=== PATIENT | female | born 1985 | race American Indian/Alaskan Native ===

== ENCOUNTER 2019-11-07 15:46 | Outpatient (CLI) | payer MEDICAID ==
[2019-11-07] MEDS ORDERED: LACTATED RINGERS 500 ML IV ONE (15:59)
[2019-11-07 16:19] VITALS: BP 123/75
[2019-11-07 16:38] LABS: Bacteria,Urine 1+ /HPF (Negative); Bilirubin,Urine NEG (Negative); Blood,Urine NEG (Negative); Color,Urine Yellow (Yellow); Protein,Urine <15 mg/dL mg/dL (Negative); Urobilinogen,Urine < 2.0 mg/dL (<2.0)
== END 2019-11-07 18:25 | disposition home or self-care (01) ==
LOC: TRG 15:46
PROVIDERS: ATTEND Obstetrics & Gynecology
DX: O26.892 Other specified pregnancy related conditions, second trimester (principal); R10.30 Lower abdominal pain, unspecified; O47.02 False labor before 37 completed weeks of gestation, second trimester; Z3A.20 20 weeks gestation of pregnancy; Z21 Asymptomatic human immunodeficiency virus [HIV] infection status
CPT/HCPCS: 59025; 81001; J7120; 96360

== ENCOUNTER 2019-11-27 12:19 | Observation (INO) | payer OTHER, MEDICAID ==
[2019-11-27] MEDS ORDERED: ACETAMINOPHEN 325 MG TAB PO PRN ×2 (12:49→14:35)
[2019-11-27] MEDS: LACTATED RINGERS 1,000 ML IV SCH ×2 (13:47→21:31)
[2019-11-27 13:58] LABS: Basophils % (Auto) 0.5 % (0.0-1.8); Hematocrit 29.6 % (30.3-42.9); Hemoglobin 10.5 gm/dl (10.1-14.3); Lymphocytes # (Auto) 0.5 K/mm3 (1.2-5.4); Lymphocytes % (Auto) 5.8 % (13.4-35.0); Mean Corpuscular HGB Conc 36 % (30-34); Mean Corpuscular Volume 87 fl (79-97); Monocytes # (Auto) 0.7 K/mm3 (0.0-0.8); Monocytes % (Auto) 8.2 % (0.0-7.3); Platelet Count 243 K/mm3 (140-440); Red Blood Count 3.39 M/mm3 (3.65-5.03); Red Cell Distribution Width 12.9 % (13.2-15.2)
[2019-11-27 14:24] LABS: Alanine Aminotransferase 29 units/L (7-56); Albumin 3.5 g/dL (3.9-5); BUN/Creatinine Ratio 8; Blood Urea Nitrogen 5 mg/dL (7-17); Calcium 8.8 mg/dL (8.4-10.2); Hemolysis Index 1
[2019-11-27] MEDS ORDERED: DOCUSATE SODIUM 100 MG CAP PO PRN (14:35)
[2019-11-27] MEDS ORDERED: ONDANSETRON 4 MG/2 ML INJ IV PRN (14:35)
[2019-11-27] MEDS ORDERED: guaiFENesin DM 200/20 MG ORAL LIQD 10 ML PO PRN (14:35)
[2019-11-27 14:52] LABS: Bilirubin,Urine NEG (Negative); Blood,Urine NEG (Negative); Color,Urine Yellow (Yellow); Protein,Urine <15 mg/dL mg/dL (Negative)
[2019-11-27] MEDS ORDERED: LACTATED RINGERS 1,000 ML IV SCH (15:00)
--- NOTE | 2019-11-27 15:30 | History and Physical Report ---
History of Present Illness Date of examination: 11/27/19 Date of admission: 11/27/19 15:05 Chief complaint: cough, fever, body aches History of present illness: Pt presents with c/o cough, body aches, and fever of 101 at home for the last 3 days. She has taken tylenol on yesterday but none today. FOB noted to have sick contacts at work with confirmed flu in co-workers and has had same sx but has not had follow with provider or treatment. He states she has no sx at his time. Pt is also HIV (+). This was not discussed while s/o was in the room as provider was not clear if he is aware of her treatments. According to last notes, pt has had follow up at [facility] with and her CD4 was 351 and HIV was 36 as per notes from August 2019. Pt admitted with + influenza B virus swab. EDC Confirmation: 03/21/2020 Gestational Age: 6 2/7 weeks Past History : 3 Term Births: 1 Premature Births: 0 Living Children: 1 Para: 1 Mult. Births: 0 Prev : 0 Aborta: 1 Elect. Ab: 0 Spont. Ab: 1 Ectopics: 0 # 1 Delivery date: 2012 Weeks Gestation: 1st trimester Delivery type: SAB # 2 Delivery date: 2013 Weeks Gestation: 40 labor: no Delivery type: Delivery location: [facility] Sex: Female weight: 6#12 Comments: HIV infection dx during PNC Past Medical History: HIV - managaed by Dr. 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 of genital herpes: no Varicella/Chicken Pox Status: Previous Disease Genetic History Congenital Heart Defect: Mom: no Dad: no Sarah Disease: Mom: no Dad: no Thalassemia Mom: no Dad: no Neural Tube Defect Mom: no Dad: no Down's Syndrome Mom: no Dad: no Rachid-Sachs Mom: no Dad: no Sickle Cell Disease/Trait Mom: no Dad: no Hemophilia Mom: no Dad: no Muscular Dystrophy Mom: no Dad: no Cystic Fibrosis Mom: no Dad: no [place] Chorea Mom: no Dad: no Mental Retardation Mom: no Dad: no Fragile X Mom: no Dad: no Other Genetic/Chromosomal Disorder Mom: no Dad: no Child w/other defect Mom: no Dad: no Enviromental Exposures Xray Exposure: no Medication, drug, or alcohol use since LMP: no Chemical/Other Exposure: no Exposure to Cat Liter: no Hx of Parvovirus (Fifth Disease): no Occupational Exposure to Children: none Current Allergies (reviewed today): No known allergies Past History Past Medical History: other (HIV (+) well controlled follwed by Dr. 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) Family/Genetic History: other (see hpi) Social history: other (see hpi) - Obstetrical History Expected Date of Delivery: 03/21/20 Actual Gestation: 23 Week(s) 4 Day(s) : 3 Para: 1 Spontaneous Abortions: 1 Number of Living Children: 1 Medications and Allergies Allergies Allergy/AdvReac Type Severity Reaction Status Date / Time No Known Allergies Allergy Verified 11/07/19 15:58 Active Meds: Active Medications Acetaminophen (Tylenol) 650 mg PO Q4H PRN PRN Reason: PAIN,FE,DAVIS Last Admin: 11/27/19 13:34 Dose: 650 mg Documented by: Acetaminophen (Tylenol) 650 mg PO Q4H PRN PRN Reason: Pain MILD(1-3)/Fever >100.5/DAVIS Docusate Sodium (Colace) 100 mg PO Q12H PRN PRN Reason: Constipation Guaifenesin (Guaifenesin Dm Syrup) 10 ml PO Q6H PRN PRN Reason: Cough Lactated Ringer's (Lactated Ringers) 1,000 mls @ 125 mls/hr IV DIRECT CELESTE Last Admin: 11/27/19 13:47 Dose: 125 mls/hr Documented by: Lactated Ringer's (Lactated Ringers) 1,000 mls @ 125 mls/hr IV DIRECT [facility]LE[facility] Multivitamins/Iron/Calcium ( Vitamin) 1 each PO QDAY [facility]LE[facility] Ondansetron HCl (Zofran) 4 mg IV Q6H PRN PRN Reason: Nausea And Vomiting Review of Systems All systems: negative - Vital Signs Vital signs: Vital Signs Pulse BP 114 H 123/72 11/27/19 13:16 11/27/19 13:16 Temp Pulse Resp BP Pulse Ox 100.3 F H 103 H 24 129/71 95 11/27/19 13:19 11/27/19 15:08 11/27/19 13:34 11/27/19 15:08 11/27/19 14:41 - Physical Exam Breasts: Positive: deferred Cardiovascular: Normal S1, Normal S2 Lungs: Positive: Clear to auscultation, Normal air movement Abdomen: Positive: normal appearance, soft. Negative: distention, tenderness, guarding Genitourinary (Female): Positive: other (deferred) - Obstetrical FHR: category 2 (tachycardia resolving with IV hydration) Results Result Diagrams: 11/27/19 13:25 11/27/19 13:25 Abnormal lab results 11/27/19 11/27/19 11/27/19 Range/Units 12:53 13:25 13:25 RBC 3.39 L (3.65-5.03) M/mm3 Hct 29.6 L (30.3-42.9) % MCHC 36 H (30-34) % RDW 12.9 L (13.2-15.2) % Lymph % (Auto) 5.8 L (13.4-35.0) % [place] % (Auto) 8.2 H (0.0-7.3) % Lymph # 0.5 L (1.2-5.4) K/mm3 Seg Neutrophils % 85.5 H (40.0-70.0) % Sodium 133 L (137-145) mmol/L Carbon Dioxide 19 L (22-30) mmol/L BUN 5 L (7-17) mg/dL Creatinine 0.6 L (0.7-1.2) mg/dL Albumin 3.5 L (3.9-5) g/dL Influenza B (Rapid) Positive A (Negative) All other labs normal. Assessment and Plan - Patient Problems (1) 23 weeks gestation of Current Visit: Yes Status: Acute (2) Influenza B Current Visit: Yes Status: Acute Plan to address problem: -chest x ray to be sure no pneumonia is present given pt does have hiv also. No productive cough but persistent as per pt -start Tamiflu -ID consulted and above recommendation was given -closely monitor (3) HIV positive, asymptomatic Current Visit: Yes Status: Acute Plan to address problem: -cont home meds at this time -ID consulted (4) Fever Current Visit: Yes Status: Acute Qualifiers: Fever type: due to other condition Qualified Code(s): R50.81 - Fever presenting with conditions classified elsewhere Plan to address problem: -low grade at this time -tylenol around the clock -blood and urine cultures -cxr pending
[2019-11-27] MEDS: OSELTAMIVIR 75 MG CAP PO SCH ×2 (16:05→21:32)
--- NOTE | 2019-11-27 16:57 | XRay Report ---
CHEST 1 VIEW 4:20 PM INDICATION / CLINICAL INFORMATION: Fever. Influenza B. 23 weeks . COMPARISON: None available. FINDINGS: SUPPORT DEVICES: The patient's brassiere was left in place. The abdomen was shielded. HEART / MEDIASTINUM: The heart size and pulmonary vasculature are normal. LUNGS / PLEURA: No significant pulmonary or pleural abnormality. No pneumothorax. ADDITIONAL FINDINGS: No significant additional findings. IMPRESSION: No acute findings. There is no evidence of pneumonia. Signer Name: Pierre Wilhelm MD Signed: 11/27/2019 4:53 PM Workstation Name: [id number]
[2019-11-27] MEDS ORDERED: LACTATED RINGERS 1,000 ML IV ONE (19:12)
[2019-11-27] MEDS ORDERED: ACETAMINOPHEN 500 MG TAB PO PRN (21:05)
[2019-11-28] MEDS: LACTATED RINGERS 1,000 ML IV SCH (03:02)
--- NOTE | 2019-11-28 07:50 | Progress Note ---
<MARGOT DIALLO - Last Filed: 11/28/19 07:51> Assessment and Plan Pt resting No c/o voiced. Desires to go home when possible. Reports good FM. Denies LOF,VB, no ctx. Today will be day 2 of Tamiflu. Waiting for ID to see pt. Dr Obregon aware of patient status. - Patient Problems (1) HIV positive, asymptomatic Onset Date: ~11/28/19 Current Visit: Yes Status: Acute (2) Influenza B Onset Date: ~11/28/19 Current Visit: Yes Status: Acute Plan to address problem: plan: to be seen by ID; complete Tamiflu Encouraged hydration Subjective - Subjective Date of service: 11/28/19 (pt anxious to go home) Principal diagnosis: IUP 23w5d with Flu Type B; HIV+ Patient reports: movement normal Objective - Vital Signs Vital Signs: Vital Signs - 12hr 11/27/19 11/27/19 11/27/19 20:37 20:38 20:39 Temperature 100.4 F H Pulse Rate 120 H 120 H 121 H Respiratory 20 Rate Blood Pressure 128/70 Blood Pressure 128/70 [Right] O2 Sat by Pulse 100 100 Oximetry 11/27/19 11/27/19 11/27/19 20:44 20:49 20:54 Temperature Pulse Rate 119 H 127 H 131 H Respiratory Rate Blood Pressure Blood Pressure [Right] O2 Sat by Pulse 100 100 100 Oximetry 11/27/19 11/27/19 11/27/19 20:59 21:04 21:09 Temperature Pulse Rate 127 H 123 H 126 H Respiratory Rate Blood Pressure Blood Pressure [Right] O2 Sat by Pulse 100 100 100 Oximetry 11/27/19 11/27/19 11/27/19 21:14 21:16 21:19 Temperature Pulse Rate 129 H 121 H 121 H Respiratory Rate Blood Pressure Blood Pressure [Right] O2 Sat by Pulse 100 90 100 Oximetry 11/27/19 11/27/19 11/27/19 22:10 22:15 22:20 Temperature Pulse Rate 129 H 124 H 125 H Respiratory Rate Blood Pressure Blood Pressure [Right] O2 Sat by Pulse 100 100 100 Oximetry 11/27/19 11/27/19 11/27/19 22:25 22:30 22:34 Temperature Pulse Rate 124 H 125 H Respiratory Rate Blood Pressure Blood Pressure [Right] O2 Sat by Pulse 100 100 67 L Oximetry 11/27/19 11/27/19 11/27/19 22:35 22:40 22:45 Temperature Pulse Rate 130 H 129 H 120 H Respiratory Rate Blood Pressure Blood Pressure [Right] O2 Sat by Pulse 96 89 97 Oximetry 11/27/19 11/27/19 11/28/19 22:50 23:36 00:38 Temperature Pulse Rate 131 H 104 H 94 H Respiratory Rate Blood Pressure 112/59 114/62 Blood Pressure [Right] O2 Sat by Pulse 75 L Oximetry 11/28/19 11/28/19 02:42 03:00 Temperature 98.4 F 97.8 F Pulse Rate 104 H 97 H Respiratory 20 18 Rate Blood Pressure 119/74 Blood Pressure 112/59 119/74 [Right] O2 Sat by Pulse Oximetry - Exam Breasts: deferred Cardiovascular: Regular rate Lungs: Clear to auscultation Abdomen: Present: normal appearance, soft. Absent: distention, tenderness Vulva: both: normal Uterus: Present: normal FHR: auscultation normal Uterine Contraction Monitor Mode: External Uterine Contraction Pattern: Absent Extremities: normal Deep Tendon Reflex Grade: Normal +2 - Labs Labs: Abnormal Labs 11/27/19 11/27/19 11/27/19 12:53 13:25 13:25 RBC 3.39 L Hct 29.6 L MCHC 36 H RDW 12.9 L Lymph % (Auto) 5.8 L [place] % (Auto) 8.2 H Lymph # 0.5 L Seg Neutrophils % 85.5 H Sodium 133 L Carbon Dioxide 19 L BUN 5 L Creatinine 0.6 L Albumin 3.5 L Influenza B (Rapid) Positive A Laboratory Results - last 24 hr 11/27/19 11/27/19 11/27/19 12:53 13:25 13:25 WBC 9.0 RBC 3.39 L Hgb 10.5 Hct 29.6 L MCV 87 MCH 31 MCHC 36 H RDW 12.9 L Plt Count 243 Lymph % (Auto) 5.8 L [place] % (Auto) 8.2 H Eos % (Auto) 0.0 Baso % (Auto) 0.5 Lymph # 0.5 L [place] # 0.7 Eos # 0.0 Baso # 0.0 Seg Neutrophils % 85.5 H Seg Neutrophils # 7.7 Sodium 133 L Potassium 4.0 Chloride 98.9 Carbon Dioxide 19 L Anion Gap 19 BUN 5 L Creatinine 0.6 L Estimated GFR > 60 BUN/Creatinine Ratio 8 Glucose 90 Calcium 8.8 Total Bilirubin 0.40 AST 24 ALT 29 Alkaline Phosphatase 77 Total Protein 7.1 Albumin 3.5 L Albumin/Globulin Ratio 1.0 Urine Color Urine Turbidity Urine pH Ur Specific [place] Urine Protein Urine Glucose (UA) Urine Ketones Urine Blood Urine Nitrite Urine Bilirubin Urine Urobilinogen Ur Leukocyte Esterase Urine WBC (Auto) Urine RBC (Auto) U Epithel Cells (Auto) Influenza A (Rapid) Negative Influenza B (Rapid) Positive A 11/27/19 14:30 WBC RBC Hgb Hct MCV MCH MCHC RDW Plt Count Lymph % (Auto) [place] % (Auto) Eos % (Auto) Baso % (Auto) Lymph # [place] # Eos # Baso # Seg Neutrophils % Seg Neutrophils # Sodium Potassium Chloride Carbon Dioxide Anion Gap BUN Creatinine Estimated GFR BUN/Creatinine Ratio Glucose Calcium Total Bilirubin AST ALT Alkaline Phosphatase Total Protein Albumin Albumin/Globulin Ratio Urine Color Yellow Urine Turbidity Clear Urine pH 7.0 Ur Specific [place] 1.015 Urine Protein <15 mg/dl Urine Glucose (UA) Neg Urine Ketones Neg Urine Blood Neg Urine Nitrite Neg Urine Bilirubin Neg Urine Urobilinogen 4.0 Ur Leukocyte Esterase Neg Urine WBC (Auto) 1.0 Urine RBC (Auto) 1.0 U Epithel Cells (Auto) 2.0 Influenza A (Rapid) Influenza B (Rapid) <INDIA OBREGON G - Last Filed: 11/28/19 08:56> Objective - Vital Signs Vital Signs: Vital Signs - 12hr 11/27/19 11/27/19 11/27/19 20:59 21:04 21:09 Temperature Pulse Rate 127 H 123 H 126 H Respiratory Rate Blood Pressure Blood Pressure [Right] O2 Sat by Pulse 100 100 100 Oximetry 11/27/19 11/27/19 11/27/19 21:14 21:16 21:19 Temperature Pulse Rate 129 H 121 H 121 H Respiratory Rate Blood Pressure Blood Pressure [Right] O2 Sat by Pulse 100 90 100 Oximetry 11/27/19 11/27/19 11/27/19 22:10 22:15 22:20 Temperature Pulse Rate 129 H 124 H 125 H Respiratory Rate Blood Pressure Blood Pressure [Right] O2 Sat by Pulse 100 100 100 Oximetry 11/27/19 11/27/19 11/27/19 22:25 22:30 22:34 Temperature Pulse Rate 124 H 125 H Respiratory Rate Blood Pressure Blood Pressure [Right] O2 Sat by Pulse 100 100 67 L Oximetry 11/27/19 11/27/19 11/27/19 22:35 22:40 22:45 Temperature Pulse Rate 130 H 129 H 120 H Respiratory Rate Blood Pressure Blood Pressure [Right] O2 Sat by Pulse 96 89 97 Oximetry 11/27/19 11/27/19 11/28/19 22:50 23:36 00:38 Temperature Pulse Rate 131 H 104 H 94 H Respiratory Rate Blood Pressure 112/59 114/62 Blood Pressure [Right] O2 Sat by Pulse 75 L Oximetry 11/28/19 11/28/19 11/28/19 02:42 03:00 07:59 Temperature 98.4 F 97.8 F Pulse Rate 104 H 97 H 104 H Respiratory 20 18 Rate Blood Pressure 119/74 132/67 Blood Pressure 112/59 119/74 [Right] O2 Sat by Pulse Oximetry 11/28/19 08:03 Temperature 99.8 F H Pulse Rate Respiratory 18 Rate Blood Pressure Blood Pressure [Right] O2 Sat by Pulse Oximetry - Labs Labs: Abnormal Labs 11/27/19 11/27/19 11/27/19 12:53 13:25 13:25 RBC 3.39 L Hct 29.6 L MCHC 36 H RDW 12.9 L Lymph % (Auto) 5.8 L [place] % (Auto) 8.2 H Lymph # 0.5 L Seg Neutrophils % 85.5 H Sodium 133 L Carbon Dioxide 19 L BUN 5 L Creatinine 0.6 L Albumin 3.5 L Influenza B (Rapid) Positive A Laboratory Results - last 24 hr 11/27/19 11/27/19 11/27/19 12:53 13:25 13:25 WBC 9.0 RBC 3.39 L Hgb 10.5 Hct 29.6 L MCV 87 MCH 31 MCHC 36 H RDW 12.9 L Plt Count 243 Lymph % (Auto) 5.8 L [place] % (Auto) 8.2 H Eos % (Auto) 0.0 Baso % (Auto) 0.5 Lymph # 0.5 L [place] # 0.7 Eos # 0.0 Baso # 0.0 Seg Neutrophils % 85.5 H Seg Neutrophils # 7.7 Sodium 133 L Potassium 4.0 Chloride 98.9 Carbon Dioxide 19 L Anion Gap 19 BUN 5 L Creatinine 0.6 L Estimated GFR > 60 BUN/Creatinine Ratio 8 Glucose 90 Calcium 8.8 Total Bilirubin 0.40 AST 24 ALT 29 Alkaline Phosphatase 77 Total Protein 7.1 Albumin 3.5 L Albumin/Globulin Ratio 1.0 Urine Color Urine Turbidity Urine pH Ur Specific [place] Urine Protein Urine Glucose (UA) Urine Ketones Urine Blood Urine Nitrite Urine Bilirubin Urine Urobilinogen Ur Leukocyte Esterase Urine WBC (Auto) Urine RBC (Auto) U Epithel Cells (Auto) Influenza A (Rapid) Negative Influenza B (Rapid) Positive A 11/27/19 14:30 WBC RBC Hgb Hct MCV MCH MCHC RDW Plt Count Lymph % (Auto) [place] % (Auto) Eos % (Auto) Baso % (Auto) Lymph # [place] # Eos # Baso # Seg Neutrophils % Seg Neutrophils # Sodium Potassium Chloride Carbon Dioxide Anion Gap BUN Creatinine Estimated GFR BUN/Creatinine Ratio Glucose Calcium Total Bilirubin AST ALT Alkaline Phosphatase Total Protein Albumin Albumin/Globulin Ratio Urine Color Yellow Urine Turbidity Clear Urine pH 7.0 Ur Specific [place] 1.015 Urine Protein <15 mg/dl Urine Glucose (UA) Neg Urine Ketones Neg Urine Blood Neg Urine Nitrite Neg Urine Bilirubin Neg Urine Urobilinogen 4.0 Ur Leukocyte Esterase Neg Urine WBC (Auto) 1.0 Urine RBC (Auto) 1.0 U Epithel Cells (Auto) 2.0 Influenza A (Rapid) Influenza B (Rapid)
[2019-11-28] MEDS: OSELTAMIVIR 75 MG CAP PO SCH (09:48)
[2019-11-28] MEDS ORDERED: COMPLERA PO SCH (10:00)
[2019-11-28] MEDS ORDERED: PRENATAL VIT27-FE FUMARATE-FOLIC ACID VIT TAB PO SCH (10:00)
--- NOTE | 2019-11-28 12:28 | Consultation ---
History of Present Illness - Reason for Consult Consult date: 11/28/19 Influenza, , HIV Requesting physician: MINGO LONGORIA - History of Present Illness The patient is a 34-year-old female who is about 23 weeks was admitted to the hospital yesterday after she developed complaints of fever, headaches and cough on Monday. Currently also had some sick contacts. She was tested for the flu and came back positive for influenza B and was hence hospitalized. Currently, she is afebrile, denies shortness of breath. Not on oxygen. Feeling better today. Denies any nausea, vomiting. Of note, she did not take the flu shot this year. Regards to her HIV, she was diagnosed in 2013 in her previous and has been on Complera. She follows up with the physician at [facility] and reports excellent HIV control. Review of Systems: General: fever, headache HEENT: no new visual disturbance Respiratory: + cough, no sputum, hemoptysis or shortness of breath Cardiovascular: No chest pain, syncope Gastrointestinal: No nausea, vomiting or diarrhea Genitourinary: No dysuria or hematuria Musculoskeletal: No new or worsening neck pain or back pain Neurologic: + headaches, no seizures Hematologic: No easy bruising or bleeding Endocrine: No night sweats or acute weight loss Skin: negative for rash, jaundice Psychiatric: No suicidal or homicidal ideation Past History Past Medical History: HIV/AIDS Social history: other (denies any smoking or alcohol) Family history: hypertension Medications and Allergies Allergies Allergy/AdvReac Type Severity Reaction Status Date / Time No Known Allergies Allergy Verified 11/07/19 15:58 Home Medications Medication Instructions Recorded Confirmed Last Taken Type Complera Tablet 300 mg PO DAILY 11/27/19 11/27/19 11/27/19 09:00 History Pnv Plus Multivit Tab 1 tab PO DAILY 11/27/19 11/27/19 11/27/19 09:00 History Active Meds: Active Medications Acetaminophen (Tylenol) 1,000 mg PO Q6H PRN PRN Reason: Pain, Mild (1-3) Last Admin: 11/27/19 21:31 Dose: 1,000 mg Documented by: Docusate Sodium (Colace) 100 mg PO Q12H PRN PRN Reason: Constipation Guaifenesin (Guaifenesin Dm Syrup) 10 ml PO Q6H PRN PRN Reason: Cough Last Admin: 11/27/19 16:05 Dose: 10 ml Documented by: Lactated Ringer's (Lactated Ringers) 1,000 mls @ 125 mls/hr IV DIRECT CELESTE Last Admin: 11/28/19 03:02 Dose: 125 mls/hr Documented by: Lactated Ringer's (Lactated Ringers) 1,000 mls @ 125 mls/hr IV DIRECT [facility] Last Infusion: 11/27/19 19:00 Dose: 999 mls/hr Documented by: Miscellaneous Medication (Complera) 300 mg PO DAILY [facility] Multivitamins/Iron/Calcium ( Vitamin) 1 each PO QDAY [facility] Last Admin: 11/28/19 09:48 Dose: 1 each Documented by: Ondansetron HCl (Zofran) 4 mg IV Q6H PRN PRN Reason: Nausea And Vomiting Oseltamivir Phosphate (Tamiflu) 75 mg PO BID [facility] Stop: 12/01/19 22:01 Last Admin: 11/28/19 09:48 Dose: 75 mg Documented by: Physical Examination - Physical Exam Narrative exam: Physical Exam: Constitutional: Alert, cooperative. No acute distress Head, Ears, Nose: Normocephalic, atraumatic. External ears, nose normal Eyes: Conjunctivae/corneas clear. No icterus. No ptosis. Neck: Supple, no meningeal signs Oral: dentition fair, no thrush Cardiovascular: S1, S2 normal. Respiratory: Good air entry, clear to auscultation bilaterally GI: Soft, gravid uterus, non-tender; bowel sounds normal. No peritoneal signs Musculoskeletal: No pedal edema, no cyanosis. Skin: No rash or abscess Hem/Lymphatic: No palpable cervical or supraclavicular nodes. No lymphangitis Psych: Mood ok. Affect normal Neurological: Awake, alert, oriented. No gross abnormality - Constitutional Vitals: Vital Signs Temp Pulse Resp BP Pulse Ox 99.8 F H 104 H 18 132/67 75 L 11/28/19 08:03 11/28/19 07:59 11/28/19 08:03 11/28/19 07:59 11/27/19 22:50 Temperature -Last 24 Hours Temperature 99.8 F Temperature 97.8 F Temperature 98.4 F Temperature 100.4 F Temperature 99.0 F Temperature 100.3 F Results - Labs CBC & Chem 7: 11/27/19 13:25 11/27/19 13:25 Labs: Abnormal lab results 11/27/19 11/27/19 11/27/19 Range/Units 12:53 13:25 13:25 RBC 3.39 L (3.65-5.03) M/mm3 Hct 29.6 L (30.3-42.9) % MCHC 36 H (30-34) % RDW 12.9 L (13.2-15.2) % Lymph % (Auto) 5.8 L (13.4-35.0) % [place] % (Auto) 8.2 H (0.0-7.3) % Lymph # 0.5 L (1.2-5.4) K/mm3 Seg Neutrophils % 85.5 H (40.0-70.0) % Sodium 133 L (137-145) mmol/L Carbon Dioxide 19 L (22-30) mmol/L BUN 5 L (7-17) mg/dL Creatinine 0.6 L (0.7-1.2) mg/dL Albumin 3.5 L (3.9-5) g/dL Influenza B (Rapid) Positive A (Negative) - Imaging and Cardiology Chest x-ray: report reviewed, image reviewed (no pneumonia seen) Assessment and Plan Cultures: 11/27/2019 urine culture: In process 11/27/2019 blood culture: In process A/P: 34/F with HIV, admitted with: #Influenza B: Recommend Tamiflu 75 mg for 5 days. No evidence of any other complications at this time. CXR without pneumonia, no fever or leucocytosis, no hypoxia. #HIV: diagnosed in 2012 in her previous and has been on Complera. She follows up with the physician at [facility] and reports excellent HIV control. Continue Complera and follow up with her outside ID physician. # status: per [facility]. Recs: OK for discharge from ID standpoint on PO Tamiflu 75 mg to complete a total of 5 days Continue Complera and follow up with her outside ID physician Lavinia Zamarripa MD, FACP [facility] C: [phone] O: [phone] F: [phone]
--- NOTE | 2019-11-28 13:23 | Discharge Summary ---
Providers - Providers Date of Admission: 11/27/19 15:05 Date of discharge: 11/28/19 (pt cleared by ID for d/c to complete Tamiflu) Attending physician: MINGO LONGORIA 11/27/19 14:35 Consult to Physician [CONS] Routine Comment: Consulting Provider: JEAN VENTURA Physician Instructions: Reason For Exam: influenza B in ; HIV (+) Primary care physician: MARISOL BATISTA Hospitalization Reason for admission: Flu B Condition: Good Hospital course: uncomplicated Disposition: DC-01 TO HOME OR SELFCARE Time spent for discharge: 20min - Discharge Diagnoses (1) HIV positive, asymptomatic Status: Acute Comment: continue meds as prescribed (2) Influenza B Status: Acute Comment: complete Tamiflu BID X 5 days Core Measure Documentation - Palliative Care Palliative Care/ Comfort Measures: Not Applicable - Core Measures Any of the following diagnoses?: none - VTE Discharge Requirements Deep Vein Thrombosis/Pulmonary Embolism Present on Admission: No Has pt received <5 days of overlap therapy or INR<2.0: No Anticoagulant overlap therapy prescribed at discharge: No Contraindication No Overlap Therapy order at DC: Not Indicated - Acute NC Discharge Requirements Aspirin at discharge: No Reason for no aspirin on DC: Medical contraindication BRAIN/ARB for LVSD if EF <40%: Not Applicable Reason for no BRAIN/ARB: Medical contraindication Beta viry at discharge: No Reason for no beta viry on DC: Medical contraindication Statin for LDL = or >100 mg/dl on DC: Not Applicable Reason for no statin on DC: Medical contraindication - Heart Failure Discharge Requirements BRAIN/ARB for LVSD if EF <40%: Not Applicable Reason for no BRAIN/ARB: Medical contraindication Beta viry at discharge: No Reason for no beta viry on DC: Medical contraindication - Stroke Discharge Requirements Statin for LDL = or >70 mg/dl on DC: Not Applicable Reason for no statin on DC: Not Indicated Anticoag for atrial fib/atrial flutter: Not Applicable Reason for no anticoag for AF/F on DC: Not Indicated Antithrombotic for ischemic stroke: No Reason for no antithrombotic on DC: Not Indicated Exam - Constitutional Vitals: Temp Pulse Resp BP Pulse Ox 99.8 F H 104 H 18 132/67 75 L 11/28/19 08:03 11/28/19 07:59 11/28/19 08:03 11/28/19 07:59 11/27/19 22:50 General appearance: Present: no acute distress, well-nourished - EENT Eyes: Present: PERRL ENT: hearing intact, clear oral mucosa - Neck Neck: Present: supple, normal ROM - Respiratory Respiratory effort: normal Respiratory: bilateral: CTA - Cardiovascular Heart Sounds: Present: S1 & S2. Absent: rub, click - Extremities Extremities: pulses symmetrical, No edema Peripheral Pulses: within normal limits - Abdominal General gastrointestinal: Present: soft, non-tender, non-distended, normal bowel sounds Female genitourinary: Present: normal - Rectal Rectal Exam: deferred - Integumentary Integumentary: Present: clear, warm, dry - Musculoskeletal Musculoskeletal: gait normal, strength equal bilaterally - Psychiatric Psychiatric: appropriate mood/affect, intact judgment & insight - Neurologic Neurologic: CNII-XII intact, moves all extremities Plan Activity: advance as tolerated Diet: advance as tolerated Follow up with: MARISOL BATISTA MD [Primary Care Provider] - 7 Days (Keep appointment as scheduled with [facility] and with [facility] everyday Call with concerns)
[2019-11-28 13:47] VITALS: BP 124/69
== END 2019-11-28 13:47 | disposition home or self-care (01) ==
LOC: TRG 12:19 → LD 15:05
PROVIDERS: ADMIT Obstetrics & Gynecology; ATTEND Obstetrics & Gynecology
DX: O34.12 Maternal care for benign tumor of corpus uteri, second trimester (principal); O98.712 Human immunodeficiency virus [HIV] disease complicating pregnancy, second trimester; O26.892 Other specified pregnancy related conditions, second trimester; J11.1 Influenza due to unidentified influenza virus with other respiratory manifestations; R50.9 Fever, unspecified; Z3A.23 23 weeks gestation of pregnancy; Z98.891 History of uterine scar from previous surgery
CPT/HCPCS: 36415; 71045; 80053; 81001; 85025; 87040; 87086; 87400; G0378; J3246; J7120

== ENCOUNTER 2020-03-26 08:10 | Inpatient (IN) | payer OTHER, MEDICAID ==
--- NOTE | 2020-03-26 08:47 | History and Physical Report ---
History of Present Illness Date of examination: 03/26/20 (pt presents for IOL) Date of admission: 03/26/20 08:10 History of present illness: EDC Confirmation: 03/21/2020 Gestational Age: 6 2/7 weeks Past History : 3 Term Births: 1 Premature Births: 0 Living Children: 1 Para: 1 Mult. Births: 0 Prev : 0 Aborta: 1 Elect. Ab: 0 Spont. Ab: 1 Ectopics: 0 # 1 Delivery date: 2012 Weeks Gestation: 1st trimester Delivery type: SAB # 2 Delivery date: 2013 Weeks Gestation: 40 labor: no Delivery type: Delivery location: [facility] Sex: Female weight: 6#12 Comments: HIV infection dx during PNC Past Medical History: HIV - managaed by Dr. 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 of genital herpes: no Varicella/Chicken Pox Status: Previous Disease Genetic History Congenital Heart Defect: Mom: no Dad: no Sarah Disease: Mom: no Dad: no Thalassemia Mom: no Dad: no Neural Tube Defect Mom: no Dad: no Down's Syndrome Mom: no Dad: no Rachid-Sachs Mom: no Dad: no Sickle Cell Disease/Trait Mom: no Dad: no Hemophilia Mom: no Dad: no Muscular Dystrophy Mom: no Dad: no Cystic Fibrosis Mom: no Dad: no [place] Chorea Mom: no Dad: no Mental Retardation Mom: no Dad: no Fragile X Mom: no Dad: no Other Genetic/Chromosomal Disorder Mom: no Dad: no Child w/other defect Mom: no Dad: no Enviromental Exposures Xray Exposure: no Medication, drug, or alcohol use since LMP: no Chemical/Other Exposure: no Exposure to Cat Liter: no Hx of Parvovirus (Fifth Disease): no Occupational Exposure to Children: none Current Allergies (reviewed today): No known allergies 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+) Social history: lives with family - Obstetrical History Expected Date of Delivery: 03/21/20 Actual Gestation: 40 Week(s) 5 Day(s) : 3 Para: 1 Hx # Term Pregnancies: 1 Number of Pregnancies: 0 Spontaneous Abortions: 1 Induced : 0 Number of Living Children: 1 Medications and Allergies Allergies Allergy/AdvReac Type Severity Reaction Status Date / Time strawberry Allergy Hives Verified 03/26/20 08:47 Home Medications Medication Instructions Recorded Confirmed Last Taken Type Complera Tablet 300 mg PO DAILY 11/27/19 03/26/20 11/27/19 09:00 History Pnv Plus Multivit Tab 1 tab PO DAILY 11/27/19 03/26/20 03/26/20 08:00 History - Physical Exam Breasts: Positive: deferred Cardiovascular: Regular rate, Normal S1, Normal S2 Lungs: Positive: Clear to auscultation Abdomen: Positive: normal appearance, soft, normal bowel sounds. Negative: distention, tenderness Genitourinary (Female): Positive: normal external genitalia Vulva: both: normal Vagina: Positive: normal moisture. Negative: discharge Cervix: Negative: lesion, discharge Uterus: Positive: normal size, normal contour Adnexa: both: normal Anus/Rectum: Positive: normal perianal skin, heme negative. Negative: rectal mass, hemorrhoids Extremities: Positive: normal Deep Tendon Reflex Grade: Normal +2 - Obstetrical FHR: category 1 Uterine Contraction Monitor Mode: External Cervical Dilatation: 3 Cervical Effacement Percentage: 70 station: -1 Uterine Contraction Pattern: Irregular Uterine Tone Measurement Phase: Resting Uterine Contraction Intensity: Mild Results Result Diagrams: 03/26/20 09:43 All other labs normal. GBS Negative HBsAg Screen Negative Negative *1 RPR Non Reactive Non Reactive *2 Rubella Antibodies, IgG 3.29 index Immune >0.99 *3 Non-immune <0.90 Equivocal 0.90 - 0.99 Immune >0.99 ABO Grouping B *4 Rh Factor Positive *5 Please note: Prior records for this patient's ABO / Rh type are not available for additional verification. Antibody Screen Negative Negative *6 WBC 10.2 x10E3/uL 3.4-10.8 *7 RBC 3.90 x10E6/uL 3.77-5.28 *8 Hemoglobin 11.8 g/dL 11.1-15.9 *9 Hematocrit [L] 33.4 % 34.0-46.6 *10 MCV 86 fL 79-97 *11 MCH 30.3 pg 26.6-33.0 *12 MCHC 35.3 g/dL 31.5-35.7 *13 RDW 13.0 % 12.3-15.4 *14 Platelets 265 x10E3/uL 150-450 *15 Neutrophils 82 % Not Estab. *16 Lymphs 12 % Not Estab. *17 Monocytes 6 % Not Estab. *18 Eos 0 % Not Estab. *19 Basos 0 % Not Estab. *20 ! Immature Cells <No Reported Value> *21 Neutrophils (Absolute) [H] 8.2 x10E3/uL 1.4-7.0 *22 Lymphs (Absolute) 1.3 x10E3/uL 0.7-3.1 *23 Monocytes(Absolute) 0.6 x10E3/uL 0.1-0.9 *24 Eos (Absolute) 0.0 x10E3/uL 0.0-0.4 *25 Baso (Absolute) 0.0 x10E3/uL 0.0-0.2 *26 ! Immature Granulocytes 0 % Not Estab. *27 ! Immature Grans (Abs) 0.0 x10E3/uL 0.0-0.1 *28 ! NRBC <No Reported Value> *29 Hematology Comments: <No Reported Value> *30 Tests: (2) HB Solu + Rflx Frac ([id number]) Hemoglobin (Hgb) Solubility [A] Positive Negative *31 Tests: (3) Hemoglobin Frac.w/o Solubility ([id number]) ! Hgb F 0.0 % 0.0-2.0 *32 ! Hgb A [L] 56.5 % 96.4-98.8 *33 ! Hgb S [H] 39.7 % 0.0 *34 ! Hgb C 0.0 % 0.0 *35 ! Hgb A2 [H] 3.8 % 1.8-3.2 *36 ! Hgb Variant <No Reported Value> *37 ! Interpretation HGSTA1 *38 Hemoglobin pattern and concentration are consistent with sickle cell trait (heterozygous). Hgb S is observed at a concentration less than the interpretation range which suggests: transfusion of a homozygous sickle cell patient, sickle trait with alpha-thalassemia, or sickle trait with iron deficiency anemia. Suggest clinical and hematologic correlation. Sickle Trait Interpretation Ranges Hgb A 50.0 - 70.0% Hgb S 30.0 - 45.0% Hgb A2 3.0 - 5.0%* *Hgb A2 values are seen to be increased over normal levels. This increase is typically due to interference from co-eluting Hgb S-subunits with the HPLC method and therefore the Hgb A2 interpretation ranges have been adjusted. Tests: (4) HCV Ab w/Rflx to Verification ([id number]) ! HCV Ab <0.1 s/co ratio 0.0-0.9 *39 Tests: (5) Comment: ([id number]) ! Comment: SPRCS *40 Non reactive HCV antibody screen is consistent with no HCV infection, unless recent infection is suspected or other evidence exists to indicate HCV infection. Tests: (6) Urine Culture, Routine ([id number]) Urine Culture, Routine Final report *41 Tests: (7) Result ([id number]) ! Result 1 No growth *42 Assessment and Plan 34y0 @ 40 weeks for IOL GBS Negative HIV+ AZT ordered. All orders in EMR - Patient Problems (1) HIV positive, asymptomatic Onset Date: ~11/28/19 Current Visit: Yes Status: Acute Plan to address problem: AZT IV given as recommended by [facility] undetectable viral load
[2020-03-26] MEDS ORDERED: MINERAL OIL 30 ML ORAL LIQD PO PRN (09:00)
[2020-03-26] MEDS ORDERED: fentaNYL 100 MCG/2 ML INJ IV PRN (09:00)
[2020-03-26] MEDS ORDERED: ePHEDrine SULFATE 50 MG/1 ML INJ IV PRN ×2 (09:00→14:36)
[2020-03-26] MEDS ORDERED: OXYTOCIN 20 UNIT/1000ML DRIP 20 UNITS/1,000 ML BAG IV SCH (09:00)
[2020-03-26] MEDS ORDERED: OXYTOCIN DRIP 30 UNITS/500 ML BAG IV SCH (09:00)
[2020-03-26] MEDS ORDERED: LACTATED RINGERS 1,000 ML IV SCH (09:00)
[2020-03-26] MEDS ORDERED: ONDANSETRON 4 MG/2 ML INJ IV PRN ×2 (09:30→15:51)
[2020-03-26] MEDS ORDERED: TERBUTALINE 1 MG/1 ML INJ SUB-Q PRN (09:30)
[2020-03-26] MEDS ORDERED: LIDOCAINE (2%) 20 MG/1 ML VIAL 20 ML MDV INFILTRATI NR (09:30)
[2020-03-26] MEDS: OXYTOCIN DRIP 30 UNITS/500 ML BAG IV SCH ×3 (09:50→13:49)
[2020-03-26 10:07] LABS: Hemoglobin 11.6 gm/dl (10.1-14.3); Mean Corpuscular HGB Conc 34 % (30-34); Mean Corpuscular Volume 85 fl (79-97); Platelet Count 214 K/mm3 (140-440); Red Blood Count 4.01 M/mm3 (3.65-5.03); Red Cell Distribution Width 15.6 % (13.2-15.2)
[2020-03-26] MEDS ORDERED: ZIDOVUDINE IV ONE (11:30)
[2020-03-26] MEDS ORDERED: DEXTROSE 5% IV ONE (11:30)
[2020-03-26] MEDS ORDERED: WATER IV ONE (11:30)
--- NOTE | 2020-03-26 14:13 | Progress Note ---
Assessment and Plan AZT infusing Will bolus for epidural Anticipate delivery - Patient Problems (1) HIV positive, asymptomatic Onset Date: ~11/28/19 Current Visit: No Status: Acute Subjective - Subjective Date of service: 03/26/20 (no c/o voiced) Principal diagnosis: IUP 40w3d IOL; HIV undetectable VL Interval history: EDC Confirmation: 03/21/2020 Gestational Age: 6 2/7 weeks Past History : 3 Term Births: 1 Premature Births: 0 Living Children: 1 Para: 1 Mult. Births: 0 Prev : 0 Aborta: 1 Elect. Ab: 0 Spont. Ab: 1 Ectopics: 0 # 1 Delivery date: 2012 Weeks Gestation: 1st trimester Delivery type: SAB # 2 Delivery date: 2013 Weeks Gestation: 40 labor: no Delivery type: Delivery location: [facility] Sex: Female weight: 6#12 Comments: HIV infection dx during PNC Past Medical History: HIV - managaed by Dr. 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 of genital herpes: no Varicella/Chicken Pox Status: Previous Disease Genetic History Congenital Heart Defect: Mom: no Dad: no Sarah Disease: Mom: no Dad: no Thalassemia Mom: no Dad: no Neural Tube Defect Mom: no Dad: no Down's Syndrome Mom: no Dad: no Rachid-Sachs Mom: no Dad: no Sickle Cell Disease/Trait Mom: no Dad: no Hemophilia Mom: no Dad: no Muscular Dystrophy Mom: no Dad: no Cystic Fibrosis Mom: no Dad: no [place] Chorea Mom: no Dad: no Mental Retardation Mom: no Dad: no Fragile X Mom: no Dad: no Other Genetic/Chromosomal Disorder Mom: no Dad: no Child w/other defect Mom: no Dad: no Enviromental Exposures Xray Exposure: no Medication, drug, or alcohol use since LMP: no Chemical/Other Exposure: no Exposure to Cat Liter: no Hx of Parvovirus (Fifth Disease): no Occupational Exposure to Children: none Current Allergies (reviewed today): No known allergies Patient reports: movement normal Objective - Vital Signs Vital Signs: Vital Signs - 12hr 03/26/20 03/26/20 03/26/20 08:40 08:41 08:44 Temperature 98.7 F Pulse Rate 108 H 111 H 110 H Respiratory 18 Rate Blood Pressure 138/91 Blood Pressure 138/91 [Right] O2 Sat by Pulse 98 98 Oximetry 03/26/20 03/26/20 03/26/20 08:46 08:51 08:56 Temperature Pulse Rate 92 H 105 H 124 H Respiratory Rate Blood Pressure Blood Pressure [Right] O2 Sat by Pulse 98 97 98 Oximetry 03/26/20 03/26/20 03/26/20 09:01 09:06 09:11 Temperature Pulse Rate 94 H 87 95 H Respiratory Rate Blood Pressure Blood Pressure [Right] O2 Sat by Pulse 97 97 97 Oximetry 03/26/20 03/26/20 03/26/20 09:16 09:21 09:26 Temperature Pulse Rate 91 H 121 H 103 H Respiratory Rate Blood Pressure Blood Pressure [Right] O2 Sat by Pulse 97 98 97 Oximetry 03/26/20 03/26/20 03/26/20 09:31 09:36 09:41 Temperature Pulse Rate 111 H 111 H 90 Respiratory Rate Blood Pressure Blood Pressure [Right] O2 Sat by Pulse 97 98 98 Oximetry 03/26/20 03/26/20 03/26/20 09:46 09:51 09:56 Temperature Pulse Rate 110 H 111 H 98 H Respiratory Rate Blood Pressure Blood Pressure [Right] O2 Sat by Pulse 97 97 97 Oximetry 03/26/20 03/26/20 03/26/20 10:01 10:06 10:11 Temperature Pulse Rate 102 H 84 115 H Respiratory Rate Blood Pressure Blood Pressure [Right] O2 Sat by Pulse 98 97 98 Oximetry 03/26/20 03/26/20 03/26/20 10:16 10:20 10:21 Temperature Pulse Rate 89 105 H 97 H Respiratory Rate Blood Pressure 127/81 Blood Pressure [Right] O2 Sat by Pulse 97 98 Oximetry 03/26/20 03/26/20 03/26/20 10:26 10:31 10:36 Temperature Pulse Rate 101 H 109 H 90 Respiratory Rate Blood Pressure Blood Pressure [Right] O2 Sat by Pulse 98 98 98 Oximetry 05/03/26/20 03/26/20 10:41 10:46 10:51 Temperature Pulse Rate 99 H 90 85 Respiratory Rate Blood Pressure 132/79 Blood Pressure [Right] O2 Sat by Pulse 97 97 97 Oximetry 03/26/20 03/26/20 03/26/20 10:56 11:01 11:06 Temperature Pulse Rate 84 83 81 Respiratory Rate Blood Pressure Blood Pressure [Right] O2 Sat by Pulse 97 97 97 Oximetry 03/26/20 03/26/20 03/26/20 11:11 11:16 11:21 Temperature Pulse Rate 86 87 94 H Respiratory Rate Blood Pressure 129/87 Blood Pressure [Right] O2 Sat by Pulse 97 98 98 Oximetry 03/26/20 03/26/20 03/26/20 11:26 11:37 11:42 Temperature Pulse Rate 89 76 81 Respiratory Rate Blood Pressure 135/77 Blood Pressure [Right] O2 Sat by Pulse 98 100 100 Oximetry 03/26/20 03/26/20 03/26/20 11:47 11:51 11:52 Temperature Pulse Rate 83 82 95 H Respiratory Rate Blood Pressure 129/74 Blood Pressure [Right] O2 Sat by Pulse 98 97 Oximetry 03/26/20 03/26/20 03/26/20 11:57 12:02 12:07 Temperature Pulse Rate 98 H 77 83 Respiratory Rate Blood Pressure Blood Pressure [Right] O2 Sat by Pulse 97 97 98 Oximetry 03/26/20 03/26/20 03/26/20 12:12 12:17 12:19 Temperature 98.4 F Pulse Rate 87 84 Respiratory Rate Blood Pressure Blood Pressure [Right] O2 Sat by Pulse 98 97 Oximetry 03/26/20 03/26/20 03/26/20 12:21 12:22 12:27 Temperature Pulse Rate 78 87 85 Respiratory Rate Blood Pressure 123/76 Blood Pressure [Right] O2 Sat by Pulse 96 97 Oximetry 03/26/20 03/26/20 03/26/20 12:32 12:37 12:42 Temperature Pulse Rate 76 85 81 Respiratory Rate Blood Pressure Blood Pressure [Right] O2 Sat by Pulse 97 97 98 Oximetry 03/26/20 03/26/20 03/26/20 12:47 12:52 12:57 Temperature Pulse Rate 84 90 82 Respiratory Rate Blood Pressure 124/78 Blood Pressure [Right] O2 Sat by Pulse 96 96 96 Oximetry 03/26/20 03/26/20 03/26/20 13:02 13:07 13:12 Temperature Pulse Rate 77 78 89 Respiratory Rate Blood Pressure Blood Pressure [Right] O2 Sat by Pulse 97 97 96 Oximetry 03/26/20 03/26/20 03/26/20 13:17 13:20 13:22 Temperature Pulse Rate 80 80 78 Respiratory Rate Blood Pressure 133/81 Blood Pressure [Right] O2 Sat by Pulse 98 98 Oximetry 03/26/20 03/26/20 03/26/20 13:27 13:32 13:37 Temperature Pulse Rate 82 87 81 Respiratory Rate Blood Pressure Blood Pressure [Right] O2 Sat by Pulse 97 98 97 Oximetry 03/26/20 03/26/20 03/26/20 13:52 13:53 13:57 Temperature Pulse Rate 85 86 80 Respiratory Rate Blood Pressure 138/87 Blood Pressure [Right] O2 Sat by Pulse 98 98 Oximetry 03/26/20 03/26/20 14:02 14:07 Temperature Pulse Rate 87 80 Respiratory Rate Blood Pressure Blood Pressure [Right] O2 Sat by Pulse 99 99 Oximetry - Exam Breasts: deferred Cardiovascular: Regular rate Lungs: Normal air movement Abdomen: Present: normal appearance, soft. Absent: distention, tenderness Uterus: Present: normal FHR: auscultation normal, category 1 Uterine Contraction Monitor Mode: External Cervical Dilatation: 5 (light meconium with ROM) Cervical Effacement Percentage: 70 (IUPC placed) station: -1 Uterine Contraction Pattern: Regular Uterine Tone Measurement Phase: Resting Uterine Contraction Intensity: Moderate Extremities: normal Deep Tendon Reflex Grade: Normal +2 - Labs Labs: Abnormal Labs 03/26/20 09:43 RDW 15.6 H Laboratory Results - last 24 hr 03/26/20 03/26/20 03/26/20 09:43 09:43 09:43 WBC 9.1 RBC 4.01 Hgb 11.6 Hct 34.0 MCV 85 MCH 29 MCHC 34 RDW 15.6 H Plt Count 214 Syphilis IgG Antibody Non-reactive Blood Type B POSITIVE Antibody Screen Negative
[2020-03-26] MEDS ORDERED: NALOXONE 2 MG/2 ML INJ IV PRN (14:36)
--- NOTE | 2020-03-26 14:36 | Anesthesia Consultation ---
Anesthesia Consult and Med Hx Date of service: 03/26/20 - Airway Anesthetic Teeth Evaluation: Good ROM Head & Neck: Adequate Mental/Hyoid Distance: Adequate Mallampati Class: Class II Intubation Access Assessment: Probably Good - Pulmonary Exam CTA: Yes - Cardiac Exam Cardiac Exam: RRR - Pre-Operative Health Status ASA Pre-Surgery Classification: ASA3 Proposed Anesthetic Plan: Epidural - Pulmonary Hx Asthma: No COPD: No Hx Pneumonia: No - Cardiovascular System Hx Hypertension: No - Central Nervous System Hx Seizures: No Hx Psychiatric Problems: No - Endocrine Hx Renal Disease: No Hx End Stage Renal Disease: No Hx Hypothyroidism: No Hx Hyperthyroidism: No - Hematic Hx Anemia: Yes (during last ) Hx Sickle Cell Disease: Yes (trait) - Other Systems Hx Alcohol Use: No Hx Obesity: Yes - Additional Comments Anesthesia Medical History Comments: HIV +
[2020-03-26] MEDS ORDERED: DEXMEDETOMIDINE 200 MCG/2 ML VIAL IV ONE (14:48)
[2020-03-26] MEDS ORDERED: fentaNYL-BUPIV 2 MCG/ML-0.125% 200 MCG/100 ML BAG EPIDURAL SCH (15:00)
--- NOTE | 2020-03-26 15:12 | Progress Note ---
Labor Epidural - Labor Epidural Start Time: 15:00 Stop Time: 15:05 Performed by:: RUSS GUTIERREZ Procedure: Patient is requesting epidural for labor pain. H&P, and labs reviewed. Procedure explained, questions answered, consent obtained. Patient in sitting position with blood pressure cuff and pulse ox on and working. Timeout performed immediately before start of procedure. Sterile betadine prep/drape. 3 mL 1% lidocaine skin wheal at L[3]-L[4]. 18-gauge Touhy epidural needle advanced to [id number] with saline at 10 cm. 27-gauge spinal needle advanced until clear, free-flowing CSF. Intrathecal dexmedetomidine [10] mcg administered and needle removed. Epidural catheter advanced to 15 cm, negative aspiration for blood and csf, negative test dose 3 ml 1.5% lidocaine with epinephrine. Sterile steri-strips and tegaderm applied, followed by tape reinforcement. Patient tolerated procedure well.
[2020-03-26] MEDS ORDERED: ACETAMINOPHEN 325 MG TAB PO PRN (15:51)
[2020-03-26] MEDS ORDERED: diphenhydrAMINE 25 MG CAP PO PRN (15:51)
[2020-03-26] MEDS ORDERED: WITCH HAZEL/ GLYCERIN PAD TP PRN (15:51)
[2020-03-26] MEDS ORDERED: PROMETHAZINE 25 MG RECT SUPP PR PRN (15:51)
[2020-03-26] MEDS ORDERED: LANOLIN/ZINC/DIMETHICONE (LANSINOH) 7 GM TP PRN (15:51)
[2020-03-26] MEDS ORDERED: MAGNESIUM HYDROXIDE (MOM) ORAL LIQD UDC PO PRN (15:51)
[2020-03-26] MEDS ORDERED: PROMETHAZINE 25 MG TAB PO PRN (15:51)
[2020-03-26] MEDS ORDERED: IBUPROFEN 600 MG TAB PO SCH (16:00)
--- NOTE | 2020-03-26 16:01 | Procedure Note ---
OB Delivery Note - Delivery Date of Delivery: 03/26/20 Sales Marketing Manager: MARGOT DIALLO Estimated blood loss: 300cc - Vaginal Delivery presentation: vertex Delivery position: OA Intrapartum events: other(please specify) (HIV+) Delivery induction: oxytocin Delivery augmentation: rupture of membranes Delivery monitor: internal uterine Route of delivery: Delivery placenta: spontaneous Delivery cord: 3 umbilical vessels Episiotomy: none Delivery laceration: 1st degree Anesthesia: epidural Delivery comments: Called to LDR for delivery Counts correct X 2 CARMITA present live born female over intact perineum Baby to mom's abdomen skin to skin. Cord blood obtained Placenta and membrane delivered complete and intact, 3 vessel cord. Sent to pathology. [facility] IVFs. 8/9, EBL 300, Wgt 9-2 1degree lac noted on perineum no repair indicated. Mom and baby remain LDR stable. - A at 1 minute: 8 at 5 minutes: 9 Infant Gender: Female (wgt 9-2)
[2020-03-26] MEDS ORDERED: OXYTOCIN 10 UNIT/1 ML INJ ONE (16:15)
[2020-03-26] MEDS: IBUPROFEN 800 MG TAB PO SCH (19:53)
[2020-03-26] MEDS: HYDROcodone/ACETAMINOPHEN 5-325 MG TAB PO PRN (23:31)
[2020-03-27 04:15] LABS: Hematocrit 31.1 % (30.3-42.9); Hemoglobin 10.5 gm/dl (10.1-14.3)
[2020-03-27] MEDS: IBUPROFEN 800 MG TAB PO SCH ×3 (05:36→18:28)
--- NOTE | 2020-03-27 07:55 | Discharge Summary ---
Providers - Providers Date of Admission: 03/26/20 08:10 Date of discharge: 03/27/20 (Pt has very strong desire to go home.) Attending physician: INDIA OBREGON Primary care physician: MARISOL BATISTA Hospitalization Reason for admission: active labor Delivery: Episiotomy: none Laceration: 1st degree (No repair needed.) Other procedures: none complications: none Discharge diagnosis: IUP at term delivered baby: female Hospital course: S: Doing well. Passing flatus, ambulating and voiding without difficulty. BC: Paraguard. Pt has a very strong desire to go home. O: VSS. Adequate I&O's. H/H 10.5/31.1. Fundus firm, minimal bleeding noted. A: 34 y.o. s/p , stable for discharge home. Pt is HIV + and will follow up with [facility] once discharged home. P: Discharge home with instructions. To schedule a visit in 4 weeks. Condition at discharge: Good Disposition: DC-01 TO HOME OR SELFCARE Plan - Provider Discharge Summary Activity: routine, no sex for 6 weeks, no heavy lifting 4 weeks, no strenuous exercise Diet: routine Instructions: routine Additional instructions: [] Smoking cessation referral if applicable(refer to patient education folder for contact #) [] Refer to [facility] Booklet Call your doctor immediately for: * Fever > 100.5 * Heavy vaginal bleeding ( >1 pad per hour) * Severe persistent headache * Shortness of breath * Reddened, hot, painful area to leg or breast * Drainage or odor from incision. * Keep incision clean and dry at all times and follow doctor's instructions regarding bathing/showering - Follow up plan Follow up: MARISOL BATISTA MD [Primary Care Provider] - 7 Days (Congratulations! Please schedule a visit in 4 weeks with the office. If you have any questions or concerns, please do not hesitate to give the office a call.)
[2020-03-27] MEDS ORDERED: MEASLES, MUMPS & RUBELLA 12,500 UNIT/0.5 ML VACCINE SUB-Q ONE (15:51)
[2020-03-27] MEDS ORDERED: DIPHtheria,PERTUSSIS(ACELL),TETANUS VACCINE/PF 0.5 ML VIAL IM ONE (15:53)
[2020-03-27] MEDS: HYDROcodone/ACETAMINOPHEN 5-325 MG TAB PO PRN (18:35)
--- NOTE | 2020-03-27 19:44 | Post Anesthesia Evaluation ---
- Post Anesthesia Evaluation Patient Participated: Yes Airway Patent: Yes Stable Respiratory Function: Yes Nausea/Vomiting: No Temp > 96.8F: Yes Pain Manageable: Yes Adequeate Hydration: Yes Anesthesia Complications: No Block Receding Appropriately: Yes
[2020-03-27 22:15] VITALS: BP 138/66
== END 2020-03-27 22:00 | disposition home or self-care (01) | DRG 806 ==
LOC: LD 08:10 → OB 17:59
PROVIDERS: ADMIT Obstetrics & Gynecology; ATTEND Obstetrics & Gynecology
PROC: 10E0XZZ Delivery of Products of Conception, External Approach (ICD-10-PCS; principal; 2020-03-26)
PROC: 3E033VJ Introduction of Other Hormone into Peripheral Vein, Percutaneous Approach (ICD-10-PCS; 2020-03-26)
PROC: 3E0R3BZ Introduction of Anesthetic Agent into Spinal Canal, Percutaneous Approach (ICD-10-PCS; 2020-03-26)
PROC: 00HU33Z Insertion of Infusion Device into Spinal Canal, Percutaneous Approach (ICD-10-PCS; 2020-03-26)
PROC: 3E0234Z Introduction of Serum, Toxoid and Vaccine into Muscle, Percutaneous Approach (ICD-10-PCS; 2020-03-27)
PROC: 3E0134Z Introduction of Serum, Toxoid and Vaccine into Subcutaneous Tissue, Percutaneous Approach (ICD-10-PCS; 2020-03-27)
DX: O99.214 Obesity complicating childbirth (principal); O98.72 Human immunodeficiency virus [HIV] disease complicating childbirth; Z37.0 Single live birth; O70.0 First degree perineal laceration during delivery; Z21 Asymptomatic human immunodeficiency virus [HIV] infection status; E66.9 Obesity, unspecified; Z82.49 Family history of ischemic heart disease and other diseases of the circulatory system; Z3A.40 40 weeks gestation of pregnancy; Z83.3 Family history of diabetes mellitus; Z23 Encounter for immunization
CPT/HCPCS: 36415; 85014; 85018; 85027; 86592; 86850; 86900; 86901; 88307; G0378; J2590; J3485; J3490; J7120